=== PATIENT | male | born 1960 | race Two or more races ===

== ENCOUNTER 2018-07-12 13:01 | Outpatient (CLI) | payer OTHER | END 2018-07-12 14:58 | disposition home or self-care (01) | LOC: RAD 13:01 | DX: K57.20 Diverticulitis of large intestine with perforation and abscess without bleeding (principal); K57.32 Diverticulitis of large intestine without perforation or abscess without bleeding; N32.1 Vesicointestinal fistula; K92.1 Melena ==

== ENCOUNTER 2018-07-16 07:00 | Inpatient (IN) | payer OTHER ==
[~2018-07-16] VITALS: Ht 180.3 cm; Wt 111.1 kg
[2018-07-16] MEDS ORDERED: LISINOP PO (10:19)
[2018-07-21] MEDS ORDERED: ZESTRIL2.5 MG PO (09:19)
== END 2018-07-23 17:40 | disposition home or self-care (01) | DRG 330 ==
LOC: O/R 07-20 06:57 → SURG 07-20 06:57 → SURH 07-20 07:00 → SURG 07-20 17:40
PROVIDERS: ADMIT Colon & Rectal Surgery
PROC: 0WUF47Z Supplement Abdominal Wall with Autologous Tissue Substitute, Percutaneous Endoscopic Approach (ICD-10-PCS; 2018-07-20)
PROC: 0TQB4ZZ Repair Bladder, Percutaneous Endoscopic Approach (ICD-10-PCS; 2018-07-20)
PROC: 0DJD8ZZ Inspection of Lower Intestinal Tract, Via Natural or Artificial Opening Endoscopic (ICD-10-PCS; 2018-07-20)
PROC: 0DTN4ZZ Resection of Sigmoid Colon, Percutaneous Endoscopic Approach (ICD-10-PCS; principal; 2018-07-20 17:15)
DX: K57.20 Diverticulitis of large intestine with perforation and abscess without bleeding (principal); N32.1 Vesicointestinal fistula; N99.72 Accidental puncture and laceration of a genitourinary system organ or structure during other procedure